=== PATIENT | female | born 1970 | race African-American/Black ===

== ENCOUNTER 2018-01-02 03:06 | Emergency (ER) | payer MEDICAID ==
[2018-01-02] MEDS ORDERED: Oseltamivir CAP* 75 MG CAP PO ONE (04:50)
[2018-01-02] MEDS ORDERED: Ibuprofen TAB* 800 MG PO ONE (04:50)
[2018-01-02] MEDS ORDERED: Albuterol/Ipratropium NEB.SOL* Albuterol 2.5 MG/Ipratropium 0.5 MG 3 ML INH ONE (05:04)
[2018-01-02] MEDS ORDERED: Codeine TAB* 30 MG PO ONE (05:05)
[2018-01-02] MEDS ORDERED: Albuterol 2.5 MG/3 ML NEB.SOL* (0.083%) INH ONE (05:05)
--- NOTE | 2018-01-02 05:57 | ED ---
Doe Orellana Tecjoon scribchris for Alvin Weeks MD on 01/02/18 at 0504 . HPI Chest Pain - HPI Summary HPI Summary: This patient is a 47 year old female presenting to [facility] with a chief complaint of chest pain since yesterday. The pain is rated 10/10 in severity. Patient states she felt like her chest was caving in. Symptoms aggravated by nothing. Symptoms alleviated by nothing. Patient additionally reports fever, SOB , cough. - History of Current Complaint Chief Complaint: EDFluSymptoms Time Seen by Provider: 01/02/18 04:48 Hx Obtained From: Patient Onset/Duration: Started Days Ago - 1, Still Present Timing: Constant Current Severity: Severe Pain Intensity: 10 Pain Scale Used: 0-10 Numeric Chest Pain Location: Diffuse Character: Crushing Aggravating Factor(s): Nothing Alleviating Factor(s): Nothing Associated Signs and Symptoms: Positive: Other: - fever, sob, cough - Allergy/Home Medications Allergies/Adverse Reactions: Allergies Allergy/AdvReac Type Severity Reaction Status Date / Time No Known Allergies Allergy Verified 01/02/18 03:11 PMH/Surg Hx/FS Hx/Imm Hx Previously Healthy: Yes Opthamlomology History: Denies: Hx Legally Blind EENT History: Denies: Hx Deafness Infectious Disease History: No Infectious Disease History: Denies: Traveled Outside the [place] in Last 30 Days - Family History Known Family History: Positive: Hypertension - Social History Lives: With Family Alcohol Use: Occasionally Hx Substance Use: No Substance Use Type: Reports: None Hx Tobacco Use: No Smoking Status (MU): Never Smoked Tobacco Review of Systems Positive: Fever Positive: Chest Pain Positive: Shortness Of Breath, Cough All Other Systems Reviewed And Are Negative: Yes Physical Exam - Summary Physical Exam Summary: VITAL SIGNS: Reviewed. GENERAL: Patient is a well-developed and nourished (MALE OR FEMALE) who is lying comfortable in the stretcher. Patient is not in any acute respiratory distress. HEAD AND FACE: No signs of trauma. No ecchymosis, hematomas or skull depressions. No sinus tenderness. EYES: PERRLA, EOMI x 2, No injected conjunctiva, no nystagmus. EARS: Hearing grossly intact. Ear canals and tympanic membranes are within normal limits. MOUTH: Oropharynx within normal limits. NECK: Supple, trachea is midline, no adenopathy, no JVD, no carotid bruit, no c- spine tenderness, neck with full ROM. CHEST: Symmetric, no tenderness at palpation LUNGS: Decreased breath sounds bilaterally. CVS: Regular rate and rhythm, S1 and S2 present, no murmurs or gallops appreciated. ABDOMEN: Soft, non-tender. No signs of distention. No rebound no guarding, and no masses palpated. Bowel sounds are normal. EXTREMITIES: FROM in all major joints, no edema, no cyanosis or clubbing. NEURO: Alert and oriented x 3. No acute neurological deficits. Speech is normal and follows commands. SKIN: Dry and warm Triage Information Reviewed: Yes Vital Signs On Initial Exam: Initial Vitals Temp Pulse Resp BP Pulse Ox 98.1 F 90 16 171/62 99 01/02/18 03:09 01/02/18 03:09 01/02/18 03:09 01/02/18 03:09 01/02/18 03:09 Vital Signs Reviewed: Yes Diagnostics - Vital Signs Vital Signs Temp Pulse Resp BP Pulse Ox 01/02/18 03:09 98.1 F 90 16 171/62 99 - Laboratory Lab Results: Lab Results 01/02/18 Range/Units 03:25 Influenza A (Rapid) Positive H (Negative) Influenza B (Rapid) Negative (Negative) Lab Statement: Any lab studies that have been ordered have been reviewed, and results considered in the medical decision making process. - Radiology CXR Xray Interpretation: No Acute Changes - CXR reveals, per radiologist, IMPRESSION : No Acute Process. ED physician has reviewed this radiology report. Radiology Interpretation Completed By: Radiologist Chest Pain Course/Dx - Course Course Of Treatment: This patient is a 47 year old female presenting to [facility] with a chief complaint of chest pain since yesterday. The pain is rated 10/10 in severity. Patient states she felt like her chest was caving in. CXR reveals, per radiologist, IMPRESSION: No Acute Process. ED physician has reviewed this radiology report. In the ED course the patient was given Albuterol, Codeine, Tamiflu, Ibuprofen. Patient will be discharged with diagnosis of Influenza and prescription for Ibuprofen and Tamiflu. Patient is advised to follow up with PCP in 3 days. The patient is agreeable with this plan. - Diagnoses Provider Diagnoses: Influenza Discharge - Discharge Plan Condition: Stable Disposition: HOME Prescriptions: Ibuprofen TAB* [Motrin TAB* 800 MG] 800 mg PO Q6H PRN #30 tab PRN Reason: Fever/Pain Oseltamivir CAP* [Tamiflu CAP*] 75 mg PO BID #10 cap Referrals: No Primary Care Phys,NOPCP [Primary Care Provider] - 3 Days [facility] [place] [facility] REFERRAL [Outside] - 3 Days Additional Instructions: Patient will be discharged with diagnosis of Influenza and prescription for Ibuprofen and Tamiflu. Patient is advised to follow up with PCP in 3 days. The patient is agreeable with this plan. Return to the ED for any new or worsening symptoms. The documentation as recorded by the Doe grewal Tecjoon accurately reflects the service I personally performed and the decisions made by Micky ashraf Abdul, MD.
[2018-01-02 06:05] VITALS: BP 162/67
--- NOTE | 2018-01-02 11:28 | RAD ---
Indication: Cough. Dyspnea. Flu symptoms for 2 days. Comparison: August 11, 2004 Technique: Upright AP 0520 hours Report: Obese body habitus limits image quality. No focal pulmonary lesion, compelling alveolar consolidation, pleural effusion, pneumothorax. Top normal heart size. Unremarkable central pulmonary vasculature and mediastinal contours. IMPRESSION: No evidence for pneumonia. No evidence for acute intrathoracic disease.
== END 2018-01-02 06:04 | disposition home or self-care (01) ==
LOC: ED 03:06
DX: J11.1 Influenza due to unidentified influenza virus with other respiratory manifestations (principal); R50.9 Fever, unspecified; R06.02 Shortness of breath; R05 Cough; R07.9 Chest pain, unspecified
CPT/HCPCS: 71045; 87502; 94640; 99284; A9270-GY

== ENCOUNTER 2018-06-28 00:34 | Emergency (ER) | payer OTHER ==
[2018-06-28] MEDS ORDERED: NS 0.9% 1000 ML* 1,000 ML IV ONE (00:46)
[2018-06-28] MEDS ORDERED: Dicyclomine CAP* 10 MG PO ONE (00:46)
[2018-06-28] MEDS ORDERED: Ondansetron ODT TAB* 4 MG PO ONE (00:46)
[2018-06-28] MEDS ORDERED: Diphenoxylat/Atrop 2.5-0.025M* 1 TAB PO ONE (00:52)
[2018-06-28] MEDS ORDERED: Morphine INJ* 2 MG/ML 1 ML SYRINGE (TWO MG - NEW SYRINGE VERSION) IV ONE (00:52)
[2018-06-28] MEDS ORDERED: Metoclopramide IV* 5 MG/ML 2 ML VIAL IV SLOW PU ONE (00:52)
[2018-06-28 01:06] LABS: ABS Basophils 0.1 10^3/ul (0-0.2); ABS Eosinophils 0.1 10^3/ul (0-0.6); ABS Lymphocytes 2.3 10^3/ul (1.0-4.8); ABS Monocytes 0.5 10^3/ul (0-0.8); ABS Neutrophils 7.4 10^3/ul (1.5-7.7); ABS Nucleated RBC 0 10^3/ul; Eosinophil % 1.1 % (0-6); Hematocrit 37 % (35-47); Hemoglobin 12.2 g/dl (12.0-16.0); Mean Corpuscular HGB Conc 33 g/dl (31-36); Mean Corpuscular Hemoglobin 26 pg (27-31); Mean Corpuscular Volume 78 fL (80-97); Mean Platelet Volume 7.4 um3 (7.4-10.4); Nucleated Red Blood Cells % 0.1; Platelet Count 267 10^3/ul (150-450); Red Cell Distribution Width 16 % (10.5-15); White Blood Count 10.4 10^3/ul (3.5-10.8)
--- NOTE | 2018-06-28 02:59 | ED ---
Abdominal Pain/Female - HPI Summary HPI Summary: This is scribe Aldo Parikh documenting for attending Carlos Manuel Weeks MD. Patient is a 48 y/o F BIBA w/ c/o abdominal pain, N/V/D onsetting today in the morning. Fevers are denied. Abdominal pain is diffuse and radiates to back. On triage, pain is rated 10/10. Patient reports taking gas-x x2 today with no relief. Hx of HTN is noted. Patient takes lisinopril, 5 mg. On triage, nothing is reported to aggravate/alleviate Sx. Home medications and allergies reviewed. I, Dr. Weeks, personally performed the services described in this documentation as scribed in my presence and it is both accurate and complete. - History of Current Complaint Chief Complaint: EDAbdPain Stated Complaint: ABD PAIN Time Seen by Provider: 06/28/18 00:44 Hx Obtained From: Patient Onset/Duration: Lasting Hours - onset today in the morning, Still Present Severity Currently: Severe Pain Intensity: 10 Pain Scale Used: 0-10 Numeric - 10/10 Location: Diffuse Radiates: Yes Radiates to: Back Aggravating Factor(s): Nothing Alleviating Factor(s): Nothing Associated Signs and Symptoms: Positive: Back Pain, Nausea, Vomiting, Diarrhea Allergies/Adverse Reactions: Allergies Allergy/AdvReac Type Severity Reaction Status Date / Time No Known Allergies Allergy Verified 05/10/18 13:35 PMH/Surg Hx/FS Hx/Imm Hx Respiratory History: Denies: Hx Asthma, Hx Chronic Obstructive Pulmonary Disease (COPD) GI History: Reports: Hx Gastroesophageal Reflux Disease Musculoskeletal History: Reports: Hx Arthritis - Bilateral Knees Sensory History: Denies: Hx Legally Blind, Hx Deafness Opthamlomology History: Denies: Hx Legally Blind Psychiatric History: Reports: Hx Bipolar Disorder Infectious Disease History: No Infectious Disease History: Denies: Traveled Outside the [place] in Last 30 Days - Family History Known Family History: Positive: Hypertension - Social History Alcohol Use: Occasionally Hx Substance Use: No Substance Use Type: Reports: None Hx Tobacco Use: No Smoking Status (MU): Current Some Day Smoker Type: Cigarettes Amount Used/How Often: 3 cigarettes/day Review of Systems Negative: Fever Positive: Abdominal Pain - diffuse, Vomiting, Diarrhea, Nausea Positive: Other - back pain All Other Systems Reviewed And Are Negative: Yes Physical Exam - Summary Physical Exam Summary: VITAL SIGNS: Reviewed. GENERAL: Patient is a morbidly obese and nourished female who is lying comfortable in the stretcher. Patient is not in any acute respiratory distress. HEAD AND FACE: No signs of trauma. No ecchymosis, hematomas or skull depressions. No sinus tenderness. EYES: PERRLA, EOMI x 2, No injected conjunctiva, no nystagmus. EARS: Hearing grossly intact. Ear canals and tympanic membranes are within normal limits. MOUTH: Oropharynx within normal limits. NECK: Supple, trachea is midline, no adenopathy, no JVD, no carotid bruit, no c- spine tenderness, neck with full ROM. CHEST: Symmetric, no tenderness at palpation LUNGS: Clear to auscultation bilaterally. No wheezing or crackles. CVS: Regular rate and rhythm, S1 and S2 present, no murmurs or gallops appreciated. ABDOMEN: Soft, mild diffuse abdominal tenderness. No signs of distention. No rebound no guarding, and no masses palpated. Bowel sounds are normal. EXTREMITIES: FROM in all major joints, no edema, no cyanosis or clubbing. NEURO: Alert and oriented x 3. No acute neurological deficits. Speech is normal and follows commands. SKIN: Dry and warm Triage Information Reviewed: Yes Vital Signs On Initial Exam: Initial Vitals Temp Pulse Resp BP Pulse Ox 98.2 F 78 18 179/102 98 06/28/18 00:40 06/28/18 00:40 06/28/18 00:40 06/28/18 00:40 06/28/18 00:40 Vital Signs Reviewed: Yes Diagnostics - Vital Signs Vital Signs Temp Pulse Resp BP Pulse Ox 06/28/18 01:13 18 06/28/18 00:40 98.2 F 78 18 179/102 98 - Laboratory Lab Results: Lab Results 06/28/18 06/28/18 Range/Units 00:59 01:00 WBC 10.4 (3.5-10.8) 10^3/ul RBC 4.70 (4.00-5.40) 10^6/ul Hgb 12.2 (12.0-16.0) g/dl Hct 37 (35-47) % MCV 78 L (80-97) fL MCH 26 L (27-31) pg MCHC 33 (31-36) g/dl RDW 16 H (10.5-15) % Plt Count 267 (150-450) 10^3/ul MPV 7.4 (7.4-10.4) um3 Neut % (Auto) 71.4 (38-83) % Lymph % (Auto) 22.0 L (25-47) % [place] % (Auto) 4.9 (0-7) % Eos % (Auto) 1.1 (0-6) % Baso % (Auto) 0.6 (0-2) % Absolute Neuts (auto) 7.4 (1.5-7.7) 10^3/ul Absolute Lymphs (auto) 2.3 (1.0-4.8) 10^3/ul Absolute Monos (auto) 0.5 (0-0.8) 10^3/ul Absolute Eos (auto) 0.1 (0-0.6) 10^3/ul Absolute Basos (auto) 0.1 (0-0.2) 10^3/ul Absolute Nucleated RBC 0 10^3/ul Nucleated RBC % 0.1 Sodium 137 (135-145) mmol/L Potassium 4.0 (3.5-5.0) mmol/L Chloride 102 (101-111) mmol/L Carbon Dioxide 26 (22-32) mmol/L Anion Gap 9 (2-11) mmol/L BUN 18 (6-24) mg/dL Creatinine 0.64 (0.51-0.95) mg/dL Est GFR ( Amer) 119.8 (>60) Est GFR (Non-Af Amer) 99.0 (>60) BUN/Creatinine Ratio 28.1 H (8-20) Glucose 142 H (70-100) mg/dL Calcium 9.5 (8.6-10.3) mg/dL Total Bilirubin 0.40 (0.2-1.0) mg/dL AST 20 (13-39) U/L ALT 26 (7-52) U/L Alkaline Phosphatase 85 (34-104) U/L C-Reactive Protein 20.59 H (<8.01) mg/L Total Protein 7.0 (6.4-8.9) g/dL Albumin 3.7 (3.2-5.2) g/dL Globulin 3.3 (2-4) g/dL Albumin/Globulin Ratio 1.1 (1-3) Amylase 127 H (29-103) U/L Lipase 55 (11.0-82.0) U/L Beta HCG, Quant < 0.60 mIU/mL Result Diagrams: 06/28/18 00:59 06/28/18 01:00 Lab Statement: Any lab studies that have been ordered have been reviewed, and results considered in the medical decision making process. Re-Evaluation - Re-Evaluation First Eval Re-Evaluation Time: 02:50 Change: Improved Comment: Patient reports feeling better. She will be discharged to home and follow up with PCP in 1-2 days. Patient is agreeable with the plan. Abdominal Pain Fem Course/Dx - Course Course Of Treatment: Patient is a 48 y/o F BIBA w/ c/o abdominal pain, N/V/D onsetting today in the morning. Fevers are denied. Abdominal pain is diffuse and radiates to back. On triage, pain is rated 10/10. Patient reports taking gas -x x2 today with no relief. Hx of HTN is noted. Patient takes lisinopril, 5 mg. On triage, nothing is reported to aggravate/alleviate Sx. Physical exam showed mild diffuse abdominal tenderness. During ED course, patient was given fluids; ondansetron Hcl 4 mg PO ED ONCE; morphine sulfate 4 mg IV ED ONCE; Metoclopramide Hcl 10 mg IV SLOW PU ONCE; Diphenoxylate Hcl/Atropine 2 tab PO ONCE; dicyclomine Hcl 20 mg PO ED ONCE. Labs showed WBC 10.4, RBC 4.7, MCV 78 L , MCH 26 L, RDW 16 H, Lymph % 22.0 L, amylase 127 H. At 0250, patient reports feeling better. Patient will be discharged to home with diagnosis of gastroenteritis. She was prescribed Metoclopramide TAB* [Reglan TAB*] 10 mg PO Q6H PRN #20 tab and instructed to follow up with PCP within 1-2 days. Patient is agreeable with the plan. - Diagnoses Provider Diagnoses: Gastroenteritis Discharge - Sign-Out/Discharge Documenting (check all that apply): Patient Departure - discharge - Discharge Plan Condition: Stable Disposition: HOME Prescriptions: Metoclopramide TAB* [Reglan TAB*] 10 mg PO Q6H PRN #20 tab PRN Reason: Nausea/Vomiting Patient Education Materials: Gastroenteritis (ED) Referrals: Freedom Alas MD [Primary Care Provider] - 2 Days Additional Instructions: Follow up with primary care physician in 1-2 days. Return to ED for any changing or worsening symptoms.
[2018-06-28 03:08] VITALS: BP 156/98
== END 2018-06-28 03:08 | disposition home or self-care (01) ==
LOC: ED 00:34
DX: K52.9 Noninfective gastroenteritis and colitis, unspecified (principal); M54.9 Dorsalgia, unspecified; I10 Essential (primary) hypertension; Z82.49 Family history of ischemic heart disease and other diseases of the circulatory system; Z72.0 Tobacco use
CPT/HCPCS: 36415; 80053; 82150; 83690; 84702; 85025; 86140; 96374; 96375; 99283; A9270-GY; J2270; J2765

== ENCOUNTER 2018-08-30 16:54 | Emergency (ER) | payer OTHER ==
--- OUTSIDE RECORDS SUMMARY | 2018-08-30 18:41 | XMS REPORT ---
:1970 External Reference #:[id number] Author Organization [place] [employer] Address [address] [facility] [place] [address] Phone [phone] Care Team Providers Name Role Phone Freedom Alas MD Primary Care Physician Unavailable Payers Type Date Identification Numbers Payment Provider Subscriber Commercial Effective: Policy Number: [id number] Fran Montoya 2018 Group Number: [id number] [address] PayID: [id number] [place] [address] Problems Date Description Provider Status Onset: 01/19/2018 Bipolar I disorder Barbara Orozco NP Active Onset: 01/19/2018 Obesity Barbara Orozco NP Active Onset: 03/21/2018 Osteoarthritis of knee Freedom Alas M.D.,FACP Active Note: bilat Onset: 03/21/2018 Essential hypertension Freedom Alas Active Santiago,FACP Onset: 06/29/2018 Body mass index 40+ - severely Freedom Alas Active obese MKy,FACP Onset: 06/29/2018 Iron deficiency anemia Freedom Alas Active Santiago,FACP Onset: 12/30/2017 Localized, primary Mundo Maldonado MD Inactive osteoarthritis Inactive: 03/21/2018 Family History Date Family Member(s) Problem(s) Comments General Hypertension General Diabetes General Cancer Father Stomach Cancer Father Mental Illness NOS Mother Cancer Bone, age 63 Social History Type Date Description Comments Marital Status Single Lives With Alone Occupation Currently Working Cigarette Use Quit - Age 47 cutting down past month, one cigarette/day ETOH Use Denies alcohol use Smoking Patient is a current smoker, smokes every day Exercise Type/Frequency Exercises sporadically Allergies, Adverse Reactions, Alerts Date Description Reaction Status Severity Comments 12/30/2017 NKDA active Medications Medication Date Status Form Strength Qnty SIG Indications Ordering Provider [facility] Charley 2017 s devyn Elizondo M.D. Zolpidem Tartrate 03/01/ Active Tablets 10mg 30tab one tab Barbara 2018 s at Orozco, bedtime CASTING OPERATOR Alprazolam / Active Tablets 0.5mg 120ta one tab Barbara 0000 bs four Orozco, times a CASTING OPERATOR day as needed for anxiety Lamotrigine / Active Tablets 200mg 30tab one tab Barbara 0000 s daily Orozco, CASTING OPERATOR Omeprazole / Active Capsules 20mg 30cap one tab Freedom 0000 DR s daily as jackson Winslow M.D.,FACP Lisinopril / Active Tablets 5mg 30tab one tab Freedom 0000 s daily Rossy Alsa M.D.,FACP Cyclobenzaprine / Active Tablets 10mg 30tab one tab Freedom HCL 0000 s daily Rossy Alas M.D.,FACP Hydrocodone-Aceta / Active Tablets 5-325mg 1 by Unknown minophen 0000 mouth every day prn. Meloxicam / Active Tablets 7.5mg Take 1 Unknown 0000 Tablet By Mouth Twice A Day Iron / Active Tablets 240(27Fe) 1 by Unknown 0000 mg mouth daily with a small glass of orange juice Vitamin D / Active Capsules 2000Unit take one Unknown (Ergocalciferol) 0000 tablet daily Zolpidem Tartrate 02/17/ Hx Tablets 5mg 30tab 1 tabs by Barbara 2017 - s mouth Orozco, 03/02/ every CASTING OPERATOR 2017 night at bedtime, as needed insomnia Tramadol HCL 01/19/ Hx Tablets 50mg 30tab one twice Barbara 2018 - s a day as Orozco, 03/21/ needed CASTING OPERATOR 2017 for pain Naproxen 12/30/ Hx Tablets 500mg 90tab 1 po bid M17.0 Zaneb 2017 - s prn pain Yasejing, 03/21/ MD 2018 Hydrocodone-Aceta 12/30/ Hx Tablets 5-325mg 14tab 1 tab M17.0 Barbara minophen 2018 - s daily as Orozco, 01/19/ needed CASTING OPERATOR 2017 for pain Bupropion HCL ER 00/00/ Hx Tablets ER 300mg Barbara (XL) 0000 - 24HR Orozco, CASTING OPERATOR 2017 Hydrocodone-Aceta / Hx Tablets 5-325mg Unknown minophen 0000 - 2017 Zolpidem Tartrate / Hx Tablets 10mg 30tab one tab Barbara 0000 - s at [place], 02/17/ bedtime CASTING OPERATOR 2017 Vital Signs Date Vital Result Comment 08/01/2018 Height 61 inches 5'1" Weight 328.00 lb Heart Rate 93 /min BP Systolic Sitting 148 mmHg BP Diastolic Sitting 100 mmHg Body Temperature 99.4 F O2 % BldC Oximetry 97 % BMI (Body Mass Index) 62.0 kg/m2 06/29/2018 Height 61 inches 5'1" Weight 331.00 lb Heart Rate 91 /min BP Systolic Sitting 140 mmHg BP Diastolic Sitting 84 mmHg BP Systolic Recheck 144 mmHg BP Diastolic Recheck 90 mmHg Body Temperature 98.4 F O2 % BldC Oximetry 95 % BMI (Body Mass Index) 62.5 kg/m2 05/11/2018 Height 61 inches 5'1" Weight 321.00 lb Heart Rate 60 /min BP Systolic 116 mmHg BP Diastolic 70 mmHg BMI (Body Mass Index) 60.6 kg/m2 03/21/2018 Weight 324.00 lb Heart Rate 86 /min BP Systolic Sitting 140 mmHg BP Diastolic Sitting 92 mmHg BP Systolic Recheck 139 mmHg BP Diastolic Recheck 85 mmHg Body Temperature 97.5 F O2 % BldC Oximetry 94 % 01/19/2018 Height 62 inches 5'2" Weight 317.00 lb Heart Rate 59 /min BP Systolic 125 mmHg BP Diastolic 80 mmHg Body Temperature 97.4 F O2 % BldC Oximetry 98 % BMI (Body Mass Index) 58.0 kg/m2 12/30/2017 Height 61 inches 5'1" Weight 329.00 lb BP Systolic 130 mmHg BP Diastolic 80 mmHg Respiratory Rate 20 /min Body Temperature 97.8 F Pain Level 10 BMI (Body Mass Index) 62.2 kg/m2 Results Test Date Test Result H/L Range Note CBC Auto Diff 04/26/2018 White Blood Count 7.3 10^3/uL 3.5-10.8 Red Blood Count 4.34 10^6/uL 4.0-5.4 Hemoglobin 11.0 g/dL Low 12.0-16.0 Hematocrit 33 % Low 35-47 Mean Corpuscular Volume 77 fL Low 80-97 Mean Corpuscular Hemoglobin 25 pg Low 27-31 Mean Corpuscular HGB Conc 33 g/dL 31-36 Red Cell Distribution Width 16 % High 10.5-15 Platelet Count 233 10^3/uL 150-450 Mean Platelet Volume 7.3 um3 Low 7.4-10.4 Abs Neutrophils 4.6 10^3/uL 1.5-7.7 Abs Lymphocytes 2.1 10^3/uL 1.0-4.8 Abs Monocytes 0.4 10^3/uL 0-0.8 Abs Eosinophils 0.1 10^3/uL 0-0.6 Abs Basophils 0 10^3/uL 0-0.2 Abs Nucleated RBC 0 10^3/uL Granulocyte % 63.1 % 38-83 Lymphocyte % 29.6 % 25-47 Monocyte % 5.3 % 0-7 Eosinophil % 1.4 % 0-6 Basophil % 0.6 % 0-2 Nucleated Red Blood Cells % 0.1 Laboratory test finding 04/26/2018 Hemoglobin A1c (Glyco 5.8 % High 4.0- 5.6 1 HGB) Comp Metabolic Panel 04/26/2018 Sodium 140 mmol/L 139-145 Potassium 3.7 mmol/L 3.5-5.0 Chloride 104 mmol/L 101-111 Co2 Carbon Dioxide 28 mmol/L 22-32 Anion Gap 8 mmol/L 2-11 Glucose 109 mg/dL High 70-100 Blood Urea Nitrogen 14 mg/dL 6-24 Creatinine 0.63 mg/dL 0.51-0.95 BUN/Creatinine Ratio 22.2 High 8-20 Calcium 8.4 mg/dL Low 8.6-10.3 Total Protein 6.4 g/dL 6.4-8.9 Albumin 3.6 g/dL 3.2-5.2 Globulin 2.8 g/dL 2-4 Albumin/Globulin Ratio 1.3 1-3 Total Bilirubin 0.40 mg/dL 0.2-1.0 Alkaline Phosphatase 69 U/L 34-104 Alt 20 U/L 7-52 Ast 18 U/L 13-39 Egfr Non- 101.3 >60 Egfr 130.3 >60 2 Iron & Iron Binding Capacity 04/26/2018 Iron 29 g/dL Low 50-212 Unsaturated Iron Binding 469 g/dL Total Iron Binding Capacity 498 g/dL High 250-450 Transferrin 356 mg/dL 203-362 % Iron Saturation 6 % Low 15-55 Laboratory test finding 04/26/2018 Ferritin 9.1 ng/mL Low 11-307 Folic Acid (Folate) 6.90 ng/mL >3.99 Vitamin B12 198 pg/mL 180-914 3 Vitamin D Total 25(Oh) 15.6 ng/mL Low 20-50 Vitamin B1 (Whole Blood) 138 nmol/L 70-180 4 Vitamin E Level 12.5 mg/L 5.5 - 17.0 5 Basic Metabolic Panel 03/21/2018 Sodium 138 mmol/L Low 139-145 Potassium 4.3 mmol/L 3.5-5.0 Chloride 100 mmol/L Low 101-111 Co2 Carbon Dioxide 31 mmol/L 22-32 Anion Gap 7 mmol/L 2-11 Glucose 106 mg/dL High 70-100 Blood Urea Nitrogen 12 mg/dL 6-24 Creatinine 0.59 mg/dL 0.51-0.95 BUN/Creatinine Ratio 20.3 High 8-20 Calcium 9.3 mg/dL 8.6-10.3 Egfr Non- 109.3 >60 Egfr 140.5 >60 6 Lipid Profile (Trig/Chol/HDL) 03/21/2018 Triglycerides 163 mg/dL 7 Cholesterol 215 mg/dL 8 HDL Cholesterol 36.2 mg/dL 9 LDL Cholesterol 146 mg/dL 10 HIV 1/2 AB Evaluation 03/21/2018 HIV 1 2 Antibody Nonreactive Nonreactive 11 GC/Chlamydia Amplified 03/21/2018 Chlamydia trachomatis Negative Negative Rna Rna Neisseria gonorrhoeae (GC) Rna Negative Negative 1 Therapeutic target for the treatment of diabetes mellitus patients is <7% HBA1C, and in selective patients <6.0%. Please refer to [place] Diabetes Association diabetic care guidelines for further information. 2 Because ethnic data is not always readily available, this report includes an eGFR for both -Americans and non- Americans. The National Kidney Disease Education Program (NKDEP) does not endorse the use of the MDRD equation for patients that are not between the ages of 18 and 70, are , have extremes of body size, muscle mass, or nutritional status, or are non- or non-. According to the National Kidney Foundation, irrespective of diagnosis, the stage of the disease is based on the level of kidney function: Stage Description GFR(mL/min/1.73 m(2)) 1 Kidney damage with normal or decreased GFR 90 2 Kidney damage with mild decrease in GFR 60-89 3 Moderate decrease in GFR 30-59 4 Severe decrease in GFR 15-29 5 Kidney failure <15 (or dialysis) 3 Normal Range 180 to 914 Indeterminate Range 145 to 180 Deficient Range <145 4 ADDITIONAL INFORMATION This test was developed and its performance characteristics determined by [facility] in a manner consistent with CLIA requirements. This test has not been cleared or approved by the U.S. Food and Drug Administration. Test Performed by: [facility] [employer] [address] [place] [id number] 5 ADDITIONAL INFORMATION This test was developed and its performance characteristics determined by [facility] in a manner consistent with CLIA requirements. This test has not been cleared or approved by the U.S. Food and Drug Administration. Test Performed by: [facility] [employer] [address] [place] [id number] 6 Because ethnic data is not always readily available, this report includes an eGFR for both -Americans and non- Americans. The National Kidney Disease Education Program (NKDEP) does not endorse the use of the MDRD equation for patients that are not between the ages of 18 and 70, are , have extremes of body size, muscle mass, or nutritional status, or are non- or non-. According to the National Kidney Foundation, irrespective of diagnosis, the stage of the disease is based on the level of kidney function: Stage Description GFR(mL/min/1.73 m(2)) 1 Kidney damage with normal or decreased GFR 90 2 Kidney damage with mild decrease in GFR 60-89 3 Moderate decrease in GFR 30-59 4 Severe decrease in GFR 15-29 5 Kidney failure <15 (or dialysis) 7 Desirable: <150 Borderline High: 150-199 High: 200-499 Very High: >500 8 Desirable: <200 Borderline High: 200-239 High: >239 9 Low: <40 Desirable: 40-60 High: >60 10 Desirable: <100 Near Optimal: 100-129 Borderline High: 130-159 High: 160-189 Very High: >189 11 It is recognized that currently available assays for the detection of antibodies to HIV-1 and/or HIV-2 may not detect all infected individuals. HIV antibodies may be undetectable in some stages of the infection and in some clinical conditions. The performance of this assay has not been established for populations of infants or children. Assayed by Chemiluminescence Microparticle Immunoassay on the Siemens Advia Centaur CP. Values obtained with different methods or kits cannot be used interchangeably.The diagnostic specificity of the ADVIA Centaur 1/O/2 Enhanced assay in the low risk population was 99.90% (6052/6058) with a 95% confidence interval of 99.78 to 99.96%. Procedures Description No Information Encounters Type Date Location Provider CPT E/M Dx Office Visit 06/29/2018 3:40p [facility] Internal Freedom Alas, [address] E66.01 Medicine - Emma Martinez M.D.,FACP M17.0 I10 D50.8 Office Visit 05/11/2018 9:00a [facility] Cam[facility] M.D. 94997 M17.0 C.M.A. M25.561 M25.562 M25.461 M25.462 M21.162 M21.161 Office Visit 03/21/2018 8:40a [facility] Internal Medicine Freedom Alas, [address] M17.0 - Tbniels Martinez M.D.,FACP I10 F41.9 E66.01 Office Visit 01/19/2018 9:40a [facility] [place] [address] [address] [place] F41.9 M17.0 Office Visit 12/30/2017 2:00p [facility] [place] [address] M17.0 C.M.A. Plan of Care Future Appointment(s):11/11/2018 10:00 am - [facility] Cam[facility] M.D. at [facility]
[2018-08-30] MEDS ORDERED: oxyCODONE/Acetamin 5/325 MG* TAB PO ONE (19:08)
[2018-08-30] MEDS ORDERED: Ibuprofen TAB* 200 MG PO ONE (20:07)
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
[2018-08-30] MEDS ORDERED: Ibuprofen TAB* 600 MG PO ONE (20:24)
[2018-08-30] MEDS ORDERED: Ibuprofen TAB* 600 MG ONE (20:25)
[2018-08-30 20:30] VITALS: BP 154/74
--- NOTE | 2018-08-31 07:57 | RAD ---
Indication: Knee pain. 4 views of the left knee and 4 views of the right knee are reviewed. The left knee demonstrates joint space narrowing in the medial compartment moderate varus deformity is noted. The right knee demonstrates joint space narrowing in the medial compartment with mild varus deformity. No fracture is identified. IMPRESSION: Degenerative changes medial compartment both knees with mild varus deformity. No fracture is identified. R0
--- NOTE | 2018-08-31 07:58 | RAD ---
Indication: Back pain. 5 views of lumbar spine are reviewed. The vertebral bodies appear normal in height. Disc spaces all well-preserved. Straightening of the normal lordosis. No fracture is noted. IMPRESSION: Straightening of the normal lordosis without evidence of fracture.
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
--- NOTE | 2018-08-31 16:11 | RAD ---
Indication: Right forearm injury 2 views of the right forearm demonstrates no fracture or dislocation. No other bone or joint abnormality is identified. IMPRESSION: No definite fracture of the right forearm is noted. R0
== END 2018-08-30 20:30 | disposition home or self-care (01) ==
LOC: ED 16:54
DX: S09.90XA Unspecified injury of head, initial encounter (principal); M54.2 Cervicalgia; M54.9 Dorsalgia, unspecified; M79.601 Pain in right arm; M25.569 Pain in unspecified knee; V49.9XXA Car occupant (driver) (passenger) injured in unspecified traffic accident, initial encounter; Y92.9 Unspecified place or not applicable
CPT/HCPCS: 72050; 72110; 99282; A9270-GY

== ENCOUNTER 2019-03-22 01:54 | Emergency (ER) | payer OTHER ==
[2019-03-22 02:41] LABS: ABS Basophils 0.1 10^3/ul (0-0.2); ABS Eosinophils 0.2 10^3/ul (0-0.6); ABS Monocytes 0.7 10^3/ul (0-0.8); ABS Neutrophils 4.8 10^3/ul (1.5-7.7); ABS Nucleated RBC 0 10^3/ul; Hematocrit 38 % (33-41); Hemoglobin 12.3 g/dL (12.0-16.0); Lymphocyte % 41.2 %; Mean Corpuscular HGB Conc 32 g/dL (31-36); Mean Corpuscular Hemoglobin 26 pg (27-31); Mean Corpuscular Volume 79 fL (80-97); Mean Platelet Volume 7.5 fL (7.4-10.4); Nucleated Red Blood Cells % 0.2; Platelet Count 325 10^3/uL (150-450); Red Blood Count 4.83 10^6 /uL (3.70-4.87); Red Cell Distribution Width 16 % (10.5-15); White Blood Count 9.7 10^3/uL (3.5-10.8)
--- NOTE | 2019-03-22 02:46 | ED ---
Respiratory - HPI Summary HPI Summary: A 48 y/o female presents to [facility] with a chief complaint of cough for two weeks. She states that she has a productive cough in which she is coughing up a lot of phlegm, and also c/o fatigue, SOB and chest pain due to cough. She denies abdominal pain, swelling or pain in her legs or fever. She notes that she had bariatric surgery in late January 2019, and felt fine until two weeks ago. She notes that her first bariatric surgery was five years ago but that it did not help her lose weight. Hx of bronchitis. - History of Current Complaint Chief Complaint: EDGeneral Stated Complaint: "COUGHING/SOB" PER PT Time Seen by Provider: 03/22/19 02:06 Hx Obtained From: Patient Onset/Duration: Gradual Onset, Lasting Weeks, Still Present Timing: Constant Initial Severity: Severe Current Severity: Severe Pain Intensity: 8 Character: Cough (Productive) Sputum Amount: Large Aggravating Factor(s): Nothing Alleviating Factor(s): Nothing Associated Signs and Symptoms: SOB, Chest Pain with Cough - Allergy/Home Medications Allergies/Adverse Reactions: Allergies Allergy/AdvReac Type Severity Reaction Status Date / Time No Known Allergies Allergy Verified 03/22/19 03:21 PMH/Surg Hx/FS Hx/Imm Hx Endocrine/Hematology History: Denies: Hx Anticoagulant Therapy, Hx Diabetes, Hx Thyroid Disease Cardiovascular History: Reports: Hx Hypertension - ON DAILY MEDS Denies: Hx Peripheral Vascular Disease Respiratory History: Denies: Hx Asthma, Hx Chronic Obstructive Pulmonary Disease (COPD) GI History: Reports: Hx Gastroesophageal Reflux Disease Musculoskeletal History: Denies: Hx Arthritis, Hx Osteoporosis Sensory History: Denies: Hx Cataracts, Hx Contacts or Glasses, Hx Glaucoma, Hx Legally Blind, Hx Deafness Opthamlomology History: Denies: Hx Cataracts, Hx Contacts or Glasses, Hx Glaucoma, Hx Legally Blind Neurological History: Denies: Hx Headaches, Hx Seizures, Hx Transient Ischemic Attacks (TIA) Psychiatric History: Reports: Hx Anxiety, Hx Depression, Hx Bipolar Disorder - Surgical History Surgery Procedure, Year, and Place: 2011 GASTRIC SLEEVE [facility] Hx Anesthesia Reactions: No Infectious Disease History: No Infectious Disease History: Denies: Traveled Outside the [place] in Last 30 Days - Family History Known Family History: Positive: Hypertension - Social History Alcohol Use: None Hx Substance Use: No Substance Use Type: Reports: None Hx Tobacco Use: No Smoking Status (MU): Current Some Day Smoker Type: Cigarettes Amount Used/How Often: 4 cigarettes/day Length of Time of Smoking/Using Tobacco: 20 YRS Have You Smoked in the Last Year: Yes Review of Systems Positive: Fatigue. Negative: Fever Positive: Chest Pain - from cough Positive: Shortness Of Breath, Cough Negative: Abdominal Pain Negative: Myalgia, Edema All Other Systems Reviewed And Are Negative: Yes Physical Exam - Summary Physical Exam Summary: Appearance: Well-appearing, Well-nourished, lying in bed comfortably Skin: Warm, dry, no obvious rash Eyes: sclera anicteric, no conjunctival pallor ENT: mucous membranes moist, pharynx appears normal Neck: Supple, nontender Respiratory: Clear to auscultation, no signs of respiratory distress Cardiovascular: Normal S1, S2. No murmurs. Normal distal pulses in tibial and radial bilaterally. Abdomen: obese, surgical wounds healing well, Soft, nontender, normal active bowel sounds present Musculoskeletal: Normal, Strength/ROM Intact Neurological: A&Ox3, awake and alert, mentation is normal, speech is fluent and appropriate Psychiatric: affect is normal, does not appear anxious or depressed Triage Information Reviewed: Yes Vital Signs On Initial Exam: Initial Vitals Temp Pulse Resp BP Pulse Ox 97.3 F 69 22 157/83 99 03/22/19 01:55 03/22/19 01:55 03/22/19 01:55 03/22/19 01:55 03/22/19 01:55 Vital Signs Reviewed: Yes Diagnostics - Vital Signs Vital Signs Temp Pulse Resp BP Pulse Ox 03/22/19 01:55 97.3 F 69 22 157/83 99 - Laboratory Result Diagrams: 03/22/19 02:33 03/22/19 02:33 Lab Statement: Any lab studies that have been ordered have been reviewed, and results considered in the medical decision making process. - Radiology CXR Radiology Interpretation Completed By: ED Physician Summary of Radiographic Findings: No acute process. Pending official imaging report. Disposition - Course Course Of Treatment: A 48 y/o female presents to [facility] with a chief complaint of cough for two weeks. She states that she has a productive cough in which she is coughing up a lot of phlegm, and also c/o fatigue, SOB and chest pain due to cough. She denies abdominal pain, swelling or pain in her legs or fever. The physical exam revealed that the abdomen is obese and surgical wounds are healing well. Bloodwork and chemistries obtained and are WNL. CXR showed no acute process. The patient will be discharged with prescriptions for Zithromax and Tussionex and follow up with her PCP. The patient is agreeable with this plan. - Diagnoses Provider Diagnoses: Acute bronchitis Discharge - Sign-Out/Discharge Documenting (check all that apply): Patient Departure Patient Received Moderate/Deep Sedation with Procedure: No - Discharge Plan Condition: Good Disposition: HOME Prescriptions: Azithromycin TAB* [Zithromax TAB (Z-IVANNA) 250 mg #6 tabs] 2 tab PO .TODAY, THEN 1 DAILY #1 ivanna Hydrocodone/Chlorphen P-Stirex [Tussionex Pennkinetic Susp] 5 ml PO BID PRN #60 ml MDD 10 ml PRN Reason: Cough Patient Education Materials: Acute Bronchitis (ED) Referrals: Spring Zaragoza MD [Primary Care Provider] - 1 Week (if not better) - Billing Disposition and Condition Condition: GOOD Disposition: Home - Attestation Statements Document Initiated by Manjitibe: Yes Documenting Scribe: Simone Vargas Provider For Whom Kimmy is Documenting (Include Credential): Bhupinder Manning MD Scribe Attestation: Simone Orellana, scribed for Bhupinder Manning MD on 03/25/19 at 0548. Scribe Documentation Reviewed: Yes Provider Attestation: The documentation as recorded by the Simone grewal accurately reflects the service I personally performed and the decisions made by me, Bhupinder Manning MD Status of Scribe Document: Viewed
[2019-03-22 02:56] LABS: Albumin 3.9 g/dL (3.2-5.2); Albumin/Globulin Ratio 1.2 (1-3); BUN/Creatinine Ratio 13.2 (8-20); Calcium 9.2 mg/dL (8.6-10.3); EGFR African American 111.7 (>60); EGFR Non-African American 92.3 (>60); Globulin 3.3 g/dL (2-4); Potassium 3.1 mmol/L (3.5-5.0); Total Bilirubin 0.5 mg/dL (0.2-1.0); Total Protein 7.2 g/dL (6.4-8.9)
[2019-03-22 03:56] VITALS: BP 132/56
== END 2019-03-22 03:50 | disposition home or self-care (01) ==
LOC: ED 01:54
DX: J40 Bronchitis, not specified as acute or chronic (principal); I10 Essential (primary) hypertension; F17.210 Nicotine dependence, cigarettes, uncomplicated
CPT/HCPCS: 36415; 71046; 80053; 83605; 85025; 85379; 99282

== ENCOUNTER 2019-10-04 05:41 | Emergency (ER) | payer OTHER ==
[2019-10-04] MEDS ORDERED: Ketorolac *IM* INJ* 60 MG/2 ML VIAL IM ONE (06:11)
[2019-10-04 06:51] VITALS: BP 119/70
--- NOTE | 2019-10-04 11:53 | ED ---
Lower Extremity - HPI Summary HPI Summary: This patient is a 49-year-old female presenting to the ED with bilateral knee pain. Knee pain has been present times several months to years. She states she has an appointment with orthopedics, Dr. Camacho, next week to discuss bilateral knee replacements. Patient has been taking ibuprofen without relief. She has also been taking tramadol without relief. She states she "needs something stronger." She recently had gastric bypass surgery last year. The bilateral knee pain has been present for years, improved somewhat since losing the weight, but has returned. She denies any other symptoms. Denies any rashes or other joint aches. - History of Current Complaint Chief Complaint: EDExtremityLower Stated Complaint: KNEE PAIN PER PT Time Seen by Provider: 10/04/19 06:00 Hx Obtained From: Patient Onset/Duration: Worse Since - 2 weekag ago Severity Initially: Moderate Severity Currently: Moderate Pain Intensity: 9 Pain Scale Used: 0-10 Numeric Timing: Constant Location: Is Discrete @ - bilateral knee Character Of Pain: Aching Associated Signs And Symptoms: Negative: Swelling, Redness, Bruising Aggravating Factor(s): Standing, Ambulation Alleviating Factor(s): Rest Able to Bear Weight: Yes - Risk Factors Gout Risk Factors: Negative DVT Risk Factors: Negative Septic Arthritis Risk Factor: Negative - Allergies/Home Medications Allergies/Adverse Reactions: Allergies Allergy/AdvReac Type Severity Reaction Status Date / Time No Known Allergies Allergy Verified 10/04/19 05:46 Home Medications: Home Medications Iron Polysaccharide Complex [Ferrex 150] 150 mg PO BID 10/04/19 [History Confirmed 10/04/19] Lisinopril 10 mg PO DAILY 10/04/19 [History Confirmed 10/04/19] Omeprazole 20 mg PO DAILY PRN 10/04/19 [History Confirmed 10/04/19] lamoTRIgine TAB(*) [Lamictal TAB(*)] 50 mg PO DAILY 10/04/19 [History Confirmed 10/04/19] traZODone TAB* [Desyrel TAB*] 100 mg PO BEDTIME 10/04/19 [History Confirmed ] PMH/Surg Hx/FS Hx/Imm Hx Previously Healthy: Yes Endocrine/Hematology History: Denies: Hx Anticoagulant Therapy, Hx Diabetes, Hx Thyroid Disease Cardiovascular History: Reports: Hx Hypertension - ON DAILY MEDS Denies: Hx Peripheral Vascular Disease Respiratory History: Denies: Hx Asthma, Hx Chronic Obstructive Pulmonary Disease (COPD) GI History: Reports: Hx Gastroesophageal Reflux Disease Musculoskeletal History: Denies: Hx Arthritis, Hx Osteoporosis Sensory History: Denies: Hx Cataracts, Hx Contacts or Glasses, Hx Glaucoma, Hx Legally Blind, Hx Deafness Opthamlomology History: Denies: Hx Cataracts, Hx Contacts or Glasses, Hx Glaucoma, Hx Legally Blind Neurological History: Denies: Hx Headaches, Hx Seizures, Hx Transient Ischemic Attacks (TIA) Psychiatric History: Reports: Hx Anxiety, Hx Depression, Hx Bipolar Disorder - Surgical History Surgery Procedure, Year, and Place: 2011 GASTRIC SLEEVE [facility] Hx Anesthesia Reactions: No - Immunization History Hx Pertussis Vaccination: No Immunizations Up to Date: Yes Infectious Disease History: No Infectious Disease History: Denies: Traveled Outside the [place] in Last 30 Days - Family History Known Family History: Positive: Hypertension - Social History Occupation: Employed Full-time Lives: With Family Alcohol Use: None Hx Substance Use: No Substance Use Type: Reports: None Hx Tobacco Use: No Smoking Status (MU): Current Some Day Smoker Type: Cigarettes Amount Used/How Often: 4 cigarettes/day Length of Time of Smoking/Using Tobacco: 20 YRS Have You Smoked in the Last Year: Yes Review of Systems Negative: Fever, Chills, Fatigue, Skin Diaphoresis Negative: Palpitations, Chest Pain Negative: Shortness Of Breath, Cough Positive: Arthralgia - bilateral knee pain Skin: Negative Neurological: Negative All Other Systems Reviewed And Are Negative: Yes Physical Exam Triage Information Reviewed: Yes Vital Signs On Initial Exam: Initial Vitals Temp Pulse Resp BP Pulse Ox 97 F 66 18 135/92 98 10/04/19 05:43 10/04/19 05:43 10/04/19 05:43 10/04/19 05:43 10/04/19 05:43 Vital Signs Reviewed: Yes Appearance: Positive: Well-Appearing, Well-Nourished Skin: Positive: Warm, Skin Color Reflects Adequate Perfusion Head/Face: Positive: Normal Head/Face Inspection Eyes: Positive: EOMI, Conjunctiva Clear Neck: Positive: No Lymphadenopathy Respiratory/Lung Sounds: Positive: Clear to Auscultation, Breath Sounds Present Cardiovascular: Positive: Pulses are Symmetrical in both Upper and Lower Extremities Musculoskeletal: Positive: Pain @ - bilateral knee pain Neurological: Positive: Speech Normal Psychiatric: Positive: Affect/Mood Appropriate AVPU Assessment: Alert Procedures - Sedation Patient Received Moderate/Deep Sedation with Procedure: No Diagnostics - Vital Signs Vital Signs Temp Pulse Resp BP Pulse Ox 10/04/19 06:50 97.8 F 53 17 119/70 99 10/04/19 05:43 97 F 66 18 135/92 98 - Laboratory Lab Statement: Any lab studies that have been ordered have been reviewed, and results considered in the medical decision making process. Lower Extremity Course/Dx - Course Course Of Treatment: Patient presents to the ED with acute on chronic bilateral knee pain. Pt has been taking tramadol and ibuprofen with no relief. Patient states "doesn't do anything, it doesn't touch it." She has a follow-up with Dr. Camacho to discuss bilateral knee replacements, however this is not until next week. She is here today stating "I need something stronger." I discussed with the patient at length that chronic knee pain should be treated with anti- inflammatories and Tylenol and not opioids. I have also discussed that if tramadol is not improving her pain, there is likely little chance other opioids will have any effect. She will need knee replacements and I have encouraged her to continue follow up with Dr. Camacho. I've agreed to give the patient 4 days of Toradol, however I have advised she should not be on chronic NSAIDs due to her gastric bypass. In the short term, toradol could be effective for this exacerbation. Pt OK with plan and discharge. Dx with acute on chronic knee pain. - Diagnoses Differential Diagnosis/HQI/PQRI: Positive: Sprain, Strain, Tendonitis, Other - bilateral knee pain Provider Diagnoses: Osteoarthritis Discharge ED - Sign-Out/Discharge Documenting (check all that apply): Patient Departure - Discharge Plan Condition: Stable Disposition: HOME Prescriptions: Ketorolac TAB * [Toradol TAB *] 10 mg PO Q6H #16 tab Patient Education Materials: Knee Pain (ED) Referrals: Charley Camacho MD [Medical Doctor] - Spring Zaragoza MD [Primary Care Provider] - Additional Instructions: Please follow up with Dr. Camacho as soon as possible Nothing will take your pain away completely - unfortunately Flare ups will make symptoms worse, and these will likely be intermittent With your history of gastric bypass, do not take NSAIDS (ibuprofen, naproxen, mobic, etc) to excess Toradol four times daily x 4 days for this knee flare up ( again, do not take nsaids while taking this medication) Stay off the knees as much as possible, but continue to do exercises to keep from stiffening up Heat will help with the pain Tylenol may be used in addition to the toradol Take both medications intermittently - Billing Disposition and Condition Condition: STABLE Disposition: Home
== END 2019-10-04 06:50 | disposition home or self-care (01) ==
LOC: ED 05:41
DX: M25.562 Pain in left knee (principal); M25.561 Pain in right knee; M17.0 Bilateral primary osteoarthritis of knee; I10 Essential (primary) hypertension; F31.9 Bipolar disorder, unspecified; Z72.0 Tobacco use
CPT/HCPCS: 96372; 99282; J1885